=== PATIENT | female | born 1970 | race Caucasian/White ===

== ENCOUNTER 2021-01-19 13:29 | Outpatient (CLI) | payer MEDICARE, MEDICAID | END 2021-01-19 13:30 | disposition home or self-care (01) | LOC: CSHMAMMO 13:29 | PROVIDERS: ATTEND Family Medicine Sports Medicine | DX: Z12.31 Encounter for screening mammogram for malignant neoplasm of breast (principal) | CPT/HCPCS: 77063; 77067 ==

== ENCOUNTER 2022-11-25 11:48 | Outpatient (CLI) | payer OTHER, MEDICAID | END 2022-11-25 11:49 | disposition home or self-care (01) | LOC: CSHMAMMO 11:48 | PROVIDERS: ATTEND Family Medicine Sports Medicine | DX: Z12.31 Encounter for screening mammogram for malignant neoplasm of breast (principal) | CPT/HCPCS: 77063; 77067 ==

== ENCOUNTER 2023-06-03 18:43 | Emergency (ER) | payer OTHER, MEDICAID ==
[2023-06-03] MEDS ORDERED: Ondansetron ODT 4 MG TAB ONE (22:00)
[2023-06-03] MEDS ORDERED: HYDROcodone/Acetaminophen 5/325 mg Tablet ONE (22:00)
[2023-06-03] MEDS ORDERED: Oxymetazoline HCl 0.05% ( 15 ML ) ONE (22:56)
== END 2023-06-03 23:45 | disposition home or self-care (01) ==
LOC: CSHERS 18:43
DX: S02.2XXA Fracture of nasal bones, initial encounter for closed fracture (principal); W18.30XA Fall on same level, unspecified, initial encounter
CPT/HCPCS: 70450; 70486; 72125; Q0162

== ENCOUNTER 2023-06-08 03:57 | Emergency (ER) | payer OTHER, MEDICAID ==
[2023-06-08] MEDS ORDERED: Orphenadrine Citrate 60 MG/2 ML VIAL ONE (04:28)
== END 2023-06-08 05:55 | disposition home or self-care (01) ==
LOC: CSHERS 03:57
DX: M25.551 Pain in right hip (principal)
CPT/HCPCS: 72192; 96372; J2360

== ENCOUNTER 2023-07-13 15:52 | Inpatient (IN) | payer OTHER, MEDICAID ==
[~2023-07-13 15:52] MED LIST: Iopamidol 370 76% 100 ML VIAL ONE
[2023-07-13 17:30] LABS: #Eosinphils 0.2 10x3/uL (0.0-0.5); #Monocytes 0.5 10x3/uL (0.0-1.1); #Neutrophils 8.6 10x3/uL (1.5-8.4); %Basophils 0.2 % (0.0-2.0); %Eosinophils 1.8 % (0.0-6.0); %Lymphocytes 10.8 % (18.0-47.0); %Monocytes 4.6 % (0.0-10.0); %Neutrophils 81.7 % (40.0-75.0); Hematocrit 29.6 % (34.9-44.5); Hemoglobin 9.2 g/dL (12.0-15.5); Mean Corpuscular HGB CONC 31.1 g/dL (32.0-36.0); Mean Corpuscular Hemoglobin 29.2 pg (27.0-33.0); Mean Platelet Volume 10.3 fl (7.4-10.4); Platelet Count 220 10x3/uL (150-450); RBC Distribution Width 16.2 % (11.5-14.5); Red Blood Cell (RBC) Count 3.15 10x6/uL (3.90-5.03); White Blood Cell (WBC) Count 10.5 10x3/uL (3.5-10.5)
[2023-07-13 17:46] LABS: ALT (SGPT) Less than 7 U/L (8-55); AST (SGOT) 23 U/L (5-34); Albumin 2.8 g/dL (3.5-5.0); Alkaline Phosphatase 105 U/L (40-110); Anion Gap 15 mmol/L (10-20); BUN (Urea Nitrogen) 18 mg/dL (9.8-20.1); Bilirubin, Total 0.4 mg/dL (0.2-1.2); Calc. Creatinine Clearance 0 mL/min (70-130); Calcium 8.5 mg/dL (7.8-10.44); Carbon Dioxide 27 mmol/L (22-29); Chloride 102 mmol/L (98-107); Estimated GFR 89; Globulin 3.8 g/dL (2.4-3.5); Glucose 104 mg/dL (70-105); Potassium 2.9 mmol/L (3.5-5.1); Protein, Total 6.6 g/dL (6.0-8.3); Sodium 141 mmol/L (136-145)
[2023-07-13 18:25] LABS: Magnesium 1.2 mg/dL (1.6-2.6)
[2023-07-13 18:38] LABS: SARS-CoV-2 NAA Rapid Test DETECTED (NotDetected)
[2023-07-13] MEDS ORDERED: CEFAZOLIN 2 GM VIAL ONE (18:45)
[2023-07-13] MEDS ORDERED: Potassium Chloride 20 MEQ/100 ML PREMIX BAG ONE ×3 (19:00→23:43)
[2023-07-13] MEDS ORDERED: Magnesium 2 GM/50 ML BAG (IN WATER) ONE (19:29)
[2023-07-13] MEDS ORDERED: Potassium Chloride 20 MEQ in Premix Bag 1 BAG IVPB SCH (22:00)
[2023-07-13] MEDS ORDERED: Ipratropium/Albuterol 3 ML NEB NEB PRN (22:07)
[2023-07-13] MEDS ORDERED: hydrALAZINE 25 MG TAB PO SCH (22:30)
[2023-07-13] MEDS ORDERED: Acetaminophen 325 MG TAB ONE (22:45)
[2023-07-13] MEDS: Acetaminophen 325 MG TAB PO PRN (22:57)
[2023-07-13] MEDS ORDERED: hydrALAZINE 25 MG TAB ONE (23:43)
[2023-07-14] MEDS ORDERED: Melatonin 3 MG TAB PO SCH (01:45)
[2023-07-14] MEDS ORDERED: CEFAZOLIN 2 GM VIAL ONE ×2 (01:52→15:21)
[2023-07-14] MEDS: CEFAZOLIN 2 GM in Sodium Chloride 0.9% 100 ML IVPB SCH ×3 (02:06→22:41)
[2023-07-14 04:24] LABS: Anion Gap 14 mmol/L (10-20); BUN (Urea Nitrogen) 16 mg/dL (9.8-20.1); Calc. Creatinine Clearance 100 mL/min (70-130); Calcium 8.4 mg/dL (7.8-10.44); Carbon Dioxide 29 mmol/L (22-29); Chloride 101 mmol/L (98-107); Estimated GFR 92; Glucose 87 mg/dL (70-105); Magnesium 1.6 mg/dL (1.6-2.6); Potassium 3.1 mmol/L (3.5-5.1); Sodium 141 mmol/L (136-145)
[2023-07-14] MEDS ORDERED: Acetaminophen 325 MG TAB ONE ×2 (07:21→14:19)
[2023-07-14] MEDS: Acetaminophen 325 MG TAB PO PRN ×3 (07:30→22:06)
[2023-07-14] MEDS ORDERED: VITAMIN D3 PO SCH (09:00)
[2023-07-14] MEDS ORDERED: CRANBERRY FRUIT 450 MG PO SCH (09:00)
[2023-07-14] MEDS ORDERED: CALCIUM CARB PO SCH (09:00)
[2023-07-14] MEDS ORDERED: [UNRECOGNIZED DRUG - OTHER] PO SCH (09:00)
[2023-07-14] MEDS ORDERED: VIT K1 PO SCH (09:00)
[2023-07-14] MEDS ORDERED: Activase 2 MG VIAL CATH SCH (09:00)
[2023-07-14] MEDS ORDERED: hydrALAZINE 25 MG TAB ONE ×2 (09:18→14:20)
[2023-07-14] MEDS ORDERED: Amiodarone 200 MG TAB ONE (09:18)
[2023-07-14] MEDS: Allopurinol 100 MG TAB PO SCH (09:54)
[2023-07-14] MEDS: Calcitriol 0.25 MCG CAP PO SCH (09:54)
[2023-07-14] MEDS: Amiodarone 200 MG TAB PO SCH (09:54)
[2023-07-14] MEDS: Citalopram 20 MG TAB PO SCH (09:55)
[2023-07-14] MEDS: hydrALAZINE 25 MG TAB PO SCH ×3 (09:55→21:49)
[2023-07-14] MEDS: Rosuvastatin 10 MG TAB PO SCH (09:56)
[2023-07-14] MEDS: Loratadine 10 MG TAB PO SCH (09:56)
[2023-07-14] MEDS ORDERED: Lidocaine 1% PF 5 ML VIAL ONE (10:41)
[2023-07-14] MEDS ORDERED: Sodium Bicarbonate 2.5 MEQ/5 ML VIAL ONE (10:41)
[2023-07-14 11:27] LABS: Potassium 3.2 mmol/L (3.5-5.1)
[2023-07-14] MEDS ORDERED: Potassium Chloride 20 MEQ/100 ML PREMIX BAG ONE ×2 (12:14→13:42)
[2023-07-14] MEDS: Potassium Chloride 20 MEQ in Premix Bag 1 BAG IVPB SCH ×2 (12:41→13:56)
[2023-07-14 16:30] LABS: Anion Gap 13 mmol/L (10-20); BUN (Urea Nitrogen) 17 mg/dL (9.8-20.1); Calc. Creatinine Clearance 90 mL/min (70-130); Calcium 8.3 mg/dL (7.8-10.44); Carbon Dioxide 29 mmol/L (22-29); Chloride 102 mmol/L (98-107); Estimated GFR 82; Glucose 136 mg/dL (70-105); Potassium 4.6 mmol/L (3.5-5.1); Sodium 139 mmol/L (136-145)
[2023-07-14 19:05] LABS: Potassium 3.8 mmol/L (3.5-5.1)
[2023-07-14 20:45] VITALS: BMI 27.1
[2023-07-14] MEDS: Aspirin 81 mg Enteric Coated Tablet PO SCH (21:48)
[2023-07-14] MEDS: Melatonin 3 MG TAB PO SCH (21:48)
[2023-07-15] MEDS: CEFAZOLIN 2 GM in Sodium Chloride 0.9% 100 ML IVPB SCH ×4 (00:19→23:29)
[2023-07-15 04:57] LABS: #Eosinphils 0.3 10x3/uL (0.0-0.5); #Monocytes 0.6 10x3/uL (0.0-1.1); #Neutrophils 6.8 10x3/uL (1.5-8.4); %Basophils 0.2 % (0.0-2.0); %Eosinophils 3.1 % (0.0-6.0); %Monocytes 6.3 % (0.0-10.0); Hematocrit 27.8 % (34.9-44.5); Hemoglobin 8.6 g/dL (12.0-15.5); Mean Corpuscular HGB CONC 30.9 g/dL (32.0-36.0); Mean Corpuscular Hemoglobin 29.6 pg (27.0-33.0); Mean Corpuscular Volume 95.5 fl (81.6-98.3); Mean Platelet Volume 10.1 fl (7.4-10.4); Platelet Count 214 10x3/uL (150-450); RBC Distribution Width 16.5 % (11.5-14.5); Red Blood Cell (RBC) Count 2.91 10x6/uL (3.90-5.03); White Blood Cell (WBC) Count 8.8 10x3/uL (3.5-10.5)
[2023-07-15] MEDS: hydrALAZINE 25 MG TAB PO SCH ×3 (08:04→21:17)
[2023-07-15] MEDS: Allopurinol 100 MG TAB PO SCH (08:04)
[2023-07-15] MEDS: Calcitriol 0.25 MCG CAP PO SCH (08:04)
[2023-07-15] MEDS: Amiodarone 200 MG TAB PO SCH (08:04)
[2023-07-15] MEDS: Citalopram 20 MG TAB PO SCH (08:04)
[2023-07-15] MEDS: Loratadine 10 MG TAB PO SCH (08:04)
[2023-07-15] MEDS: Rosuvastatin 10 MG TAB PO SCH (08:05)
[2023-07-15 08:50] LABS: Anion Gap 15 mmol/L (10-20); BUN (Urea Nitrogen) 16 mg/dL (9.8-20.1); Calc. Creatinine Clearance 98 mL/min (70-130); Calcium 8.6 mg/dL (7.8-10.44); Carbon Dioxide 29 mmol/L (22-29); Chloride 101 mmol/L (98-107); Estimated GFR 95; Glucose 81 mg/dL (70-105); Magnesium 1.4 mg/dL (1.6-2.6); Phosphorus 3.5 mg/dL (2.3-4.7); Potassium 4.1 mmol/L (3.5-5.1); Sodium 141 mmol/L (136-145)
[2023-07-15] MEDS: traMADol HCl 50 MG TAB PO PRN (18:23)
[2023-07-15] MEDS ORDERED: Magnesium 2 GM/50 ML(in water) 2 GM in Premix Bag 1 BAG IVPB SCH (20:00)
[2023-07-15] MEDS ORDERED: Furosemide 40 MG/4 ML VIAL SLOW IVP SCH (20:00)
[2023-07-15] MEDS: Melatonin 3 MG TAB PO SCH (21:17)
[2023-07-15] MEDS: Aspirin 81 mg Enteric Coated Tablet PO SCH (21:17)
[2023-07-16 04:39] LABS: #Eosinphils 0.2 10x3/uL (0.0-0.5); #Monocytes 0.6 10x3/uL (0.0-1.1); #Neutrophils 7.3 10x3/uL (1.5-8.4); %Basophils 0.4 % (0.0-2.0); %Eosinophils 1.8 % (0.0-6.0); %Lymphocytes 10.5 % (18.0-47.0); %Neutrophils 79.6 % (40.0-75.0); Hematocrit 28.2 % (34.9-44.5); Hemoglobin 8.8 g/dL (12.0-15.5); Mean Corpuscular HGB CONC 31.2 g/dL (32.0-36.0); Mean Corpuscular Hemoglobin 29.1 pg (27.0-33.0); Mean Corpuscular Volume 93.4 fl (81.6-98.3); Mean Platelet Volume 9.8 fl (7.4-10.4); Platelet Count 219 10x3/uL (150-450); RBC Distribution Width 16.2 % (11.5-14.5); Red Blood Cell (RBC) Count 3.02 10x6/uL (3.90-5.03); White Blood Cell (WBC) Count 9.2 10x3/uL (3.5-10.5)
[2023-07-16] MEDS ORDERED: hydrALAZINE 25 MG TAB PO SCH (04:45)
[2023-07-16 04:55] LABS: Anion Gap 20 mmol/L (10-20); BUN (Urea Nitrogen) 16 mg/dL (9.8-20.1); Calc. Creatinine Clearance 94 mL/min (70-130); Calcium 8.5 mg/dL (7.8-10.44); Carbon Dioxide 29 mmol/L (22-29); Chloride 99 mmol/L (98-107); Estimated GFR 91; Glucose 95 mg/dL (70-105); Potassium 3.5 mmol/L (3.5-5.1); Sodium 144 mmol/L (136-145)
[2023-07-16] MEDS ORDERED: Levothyroxine Sodium 50 MCG TAB PO SCH (08:00)
[2023-07-16 08:33] LABS: Magnesium 1.5 mg/dL (1.6-2.6)
[2023-07-16] MEDS: Citalopram 20 MG TAB PO SCH (08:52)
[2023-07-16] MEDS: Allopurinol 100 MG TAB PO SCH (08:52)
[2023-07-16] MEDS: Calcitriol 0.25 MCG CAP PO SCH (08:52)
[2023-07-16] MEDS: Rosuvastatin 10 MG TAB PO SCH (08:52)
[2023-07-16] MEDS: Loratadine 10 MG TAB PO SCH (08:52)
[2023-07-16] MEDS: Amiodarone 200 MG TAB PO SCH (08:52)
[2023-07-16] MEDS: hydrALAZINE 25 MG TAB PO SCH ×3 (08:53→21:32)
[2023-07-16] MEDS: Furosemide 40 MG/4 ML VIAL SLOW IVP SCH (08:54)
[2023-07-16] MEDS: CEFAZOLIN 2 GM in Sodium Chloride 0.9% 100 ML IVPB SCH ×2 (08:56→17:19)
[2023-07-16] MEDS: traMADol HCl 50 MG TAB PO PRN (17:19)
[2023-07-16] MEDS: Aspirin 81 mg Enteric Coated Tablet PO SCH (21:32)
[2023-07-16] MEDS: Melatonin 3 MG TAB PO SCH (21:32)
[2023-07-16] MEDS: Acetaminophen 325 MG TAB PO PRN (21:33)
[2023-07-17] MEDS: CEFAZOLIN 2 GM in Sodium Chloride 0.9% 100 ML IVPB SCH ×3 (00:36→15:43)
[2023-07-17 04:40] LABS: Anion Gap 17 mmol/L (10-20); BUN (Urea Nitrogen) 19 mg/dL (9.8-20.1); Calc. Creatinine Clearance 86 mL/min (70-130); Calcium 8.6 mg/dL (7.8-10.44); Carbon Dioxide 34 mmol/L (22-29); Chloride 94 mmol/L (98-107); Estimated GFR 82; Glucose 87 mg/dL (70-105); Magnesium 1.3 mg/dL (1.6-2.6); Potassium 3.3 mmol/L (3.5-5.1); Sodium 142 mmol/L (136-145)
[2023-07-17 04:54] LABS: #Eosinphils 0.2 10x3/uL (0.0-0.5); #Monocytes 0.5 10x3/uL (0.0-1.1); #Neutrophils 6.2 10x3/uL (1.5-8.4); %Basophils 0.4 % (0.0-2.0); %Eosinophils 2.8 % (0.0-6.0); %Lymphocytes 13.8 % (18.0-47.0); %Monocytes 6.4 % (0.0-10.0); %Neutrophils 74.5 % (40.0-75.0); Hemoglobin 8.8 g/dL (12.0-15.5); Mean Corpuscular HGB CONC 31.4 g/dL (32.0-36.0); Mean Corpuscular Hemoglobin 29.6 pg (27.0-33.0); Mean Corpuscular Volume 94.3 fl (81.6-98.3); Platelet Count 220 10x3/uL (150-450); RBC Distribution Width 16.6 % (11.5-14.5); Red Blood Cell (RBC) Count 2.97 10x6/uL (3.90-5.03); White Blood Cell (WBC) Count 8.3 10x3/uL (3.5-10.5)
[2023-07-17] MEDS: Levothyroxine Sodium 50 MCG TAB PO SCH (05:50)
[2023-07-17] MEDS ORDERED: Levothyroxine Sodium 50 MCG TAB PO SCH (06:00)
[2023-07-17] MEDS ORDERED: Potassium Chloride 20 MEQ TAB PO SCH (09:15)
[2023-07-17] MEDS: Magnesium 2 GM/50 ML(in water) 2 GM in Premix Bag 1 BAG IVPB SCH (10:51)
[2023-07-17] MEDS: Acetaminophen 325 MG TAB PO PRN (10:55)
[2023-07-17] MEDS: Furosemide 40 MG/4 ML VIAL SLOW IVP SCH (10:55)
[2023-07-17] MEDS: Calcitriol 0.25 MCG CAP PO SCH (10:56)
[2023-07-17] MEDS: Allopurinol 100 MG TAB PO SCH (10:56)
[2023-07-17] MEDS: Loratadine 10 MG TAB PO SCH (10:56)
[2023-07-17] MEDS: Amiodarone 200 MG TAB PO SCH (10:57)
[2023-07-17] MEDS: hydrALAZINE 25 MG TAB PO SCH ×3 (10:57→21:02)
[2023-07-17] MEDS: Citalopram 20 MG TAB PO SCH (10:57)
[2023-07-17] MEDS: Rosuvastatin 10 MG TAB PO SCH (10:57)
[2023-07-17] MEDS: Aspirin 81 mg Enteric Coated Tablet PO SCH (21:02)
[2023-07-17] MEDS: Melatonin 3 MG TAB PO SCH (21:02)
[2023-07-18] MEDS: CEFAZOLIN 2 GM in Sodium Chloride 0.9% 100 ML IVPB SCH ×3 (00:23→15:30)
[2023-07-18] MEDS: Levothyroxine Sodium 50 MCG TAB PO SCH (04:11)
[2023-07-18] MEDS: Acetaminophen 325 MG TAB PO PRN (04:11)
[2023-07-18] MEDS: Magnesium 2 GM/50 ML(in water) 2 GM in Premix Bag 1 BAG IVPB SCH (09:15)
[2023-07-18 10:20] LABS: BUN (Urea Nitrogen) 21 mg/dL (9.8-20.1); Calc. Creatinine Clearance 88 mL/min (70-130); Calcium 8.8 mg/dL (7.8-10.44); Estimated GFR 84; Glucose 123 mg/dL (70-105); Magnesium 1.7 mg/dL (1.6-2.6)
[2023-07-18 10:27] LABS: Anion Gap 16 mmol/L (10-20); Carbon Dioxide 34 mmol/L (22-29); Chloride 92 mmol/L (98-107); Potassium 3.1 mmol/L (3.5-5.1); Sodium 139 mmol/L (136-145)
[2023-07-18] MEDS: hydrALAZINE 25 MG TAB PO SCH ×2 (10:54→15:31)
[2023-07-18] MEDS: Loratadine 10 MG TAB PO SCH (11:18)
[2023-07-18] MEDS: Citalopram 20 MG TAB PO SCH (11:19)
[2023-07-18] MEDS: Allopurinol 100 MG TAB PO SCH (11:20)
[2023-07-18] MEDS: Calcitriol 0.25 MCG CAP PO SCH (11:21)
[2023-07-18] MEDS: Rosuvastatin 10 MG TAB PO SCH (11:21)
[2023-07-18] MEDS: Amiodarone 200 MG TAB PO SCH (11:22)
[2023-07-18] MEDS: Furosemide 40 MG/4 ML VIAL SLOW IVP SCH (12:03)
[2023-07-18] MEDS ORDERED: Potassium Chloride 20 MEQ TAB PO SCH (15:00)
[2023-07-18 18:34] VITALS: BP 126/86; TEMP 98.1
== END 2023-07-18 17:50 | DRG 314 ==
LOC: CSHERS 15:52 → CSHERHOLD 20:49 → CSHTELE 07-14 19:31 → OBSVTOIN 07-16 11:12
PROVIDERS: ADMIT Family Medicine; ATTEND Emergency Medicine
PROC: 02H633Z Insertion of Infusion Device into Right Atrium, Percutaneous Approach (ICD-10-PCS; principal; 2023-07-14)
PROC: B5181ZA Fluoroscopy of Superior Vena Cava using Low Osmolar Contrast, Guidance (ICD-10-PCS; 2023-07-14)
DX: T82.898A Other specified complication of vascular prosthetic devices, implants and grafts, initial encounter (principal); G93.41 Metabolic encephalopathy; S72.001A Fracture of unspecified part of neck of right femur, initial encounter for closed fracture; U07.1 COVID-19; I31.39 Other pericardial effusion (noninflammatory); S32.9XXA Fracture of unspecified parts of lumbosacral spine and pelvis, initial encounter for closed fracture; J90 Pleural effusion, not elsewhere classified; R78.81 Bacteremia; E87.6 Hypokalemia; E83.42 Hypomagnesemia; F79 Unspecified intellectual disabilities; M10.9 Gout, unspecified; K21.9 Gastro-esophageal reflux disease without esophagitis; E78.5 Hyperlipidemia, unspecified; B95.61 Methicillin susceptible Staphylococcus aureus infection as the cause of diseases classified elsewhere; I49.9 Cardiac arrhythmia, unspecified; D64.9 Anemia, unspecified; G47.30 Sleep apnea, unspecified; E03.9 Hypothyroidism, unspecified; R13.10 Dysphagia, unspecified; I12.9 Hypertensive chronic kidney disease with stage 1 through stage 4 chronic kidney disease, or unspecified chronic kidney disease; N18.9 Chronic kidney disease, unspecified; Z96.641 Presence of right artificial hip joint; Z88.5 Allergy status to narcotic agent; Z98.890 Other specified postprocedural states; Z79.82 Long term (current) use of aspirin; Z79.2 Long term (current) use of antibiotics
CPT/HCPCS: 36415; 36569; 71045; 71275; 80048; 80053; 83605; 83735; 83880; 84100; 84145; 84443; 85025; 93005; 93306; 94660; 94760; 94762; 96372; 96374; 96375; 96376; C1751; G0378; J1650; J1940; J3475; J3480; J3490; U0002

== ENCOUNTER 2023-09-26 10:19 | Outpatient (CLI) | payer OTHER, MEDICAID | END 2023-09-26 10:20 | disposition home or self-care (01) | LOC: CSHRAD 10:19 | PROVIDERS: ATTEND Family Medicine Sports Medicine | DX: M25.551 Pain in right hip (principal); S32.810A Multiple fractures of pelvis with stable disruption of pelvic ring, initial encounter for closed fracture ==